=== PATIENT | female | born 1985 | race Two or more races ===

== ENCOUNTER 2021-06-27 16:04 | Emergency (ER) | payer OTHER ==
[~2021-06-27] VITALS: Ht 160 cm; Wt 54.9 kg
[2021-06-27 16:50] LABS: Hematocrit 39.4 % (36.0-46.0); Hemoglobin 13.6 g/dL (12.2-16.2); Mean Corpuscular Hemoglobin 32.5 pg (28.0-32.0); Mean Corpuscular Hgb Conc. 34.6 g/dL (32.0-36.0); Mean Corpuscular Volume 94.1 fL (80.0-100.0); Red Blood Cells 4.19 10^6/uL (4.0-5.20); Red Cell Distribution Width 12.6 % (11.8-14.3)
[2021-06-27] MEDS ORDERED: ONDANSETRON HCL 4 MG/2 ML VIAL IV ONE (17:00)
[2021-06-27] MEDS ORDERED: SODIUM CHLORIDE 0.9% 1,000 ML IV ONE (17:00)
[2021-06-27] MEDS ORDERED: methylPREDNISolone SOD SUCC 125 MG/2 ML VL IV ONE (17:00)
[2021-06-27 17:02] LABS: Basophils % (manual) 0 (0.0-2.0); Blast Cells 0; Eosinophils % (manual) 0 (0-7); Metamyelocytes % 0; Myelocytes % 0; Promyelocytes % 0; Reactive Lymphocytes 0
[2021-06-27 17:10] LABS: Albumin 3.4 g/dL (3.4-5.0); Calcium 8.6 mg/dL (8.5-10.1); Potassium 3.9 mmol/L (3.5-5.1)
[2021-06-27 17:13] LABS: Bilirubin, Total 0.3 mg/dL (0.2-1.0); Total Protein 7.3 g/dL (6.4-8.2)
[2021-06-27 20:28] VITALS: BP 124/88
[2021-06-27 20:31] LABS: Band Neutrophils % (manual) 1; Lymphocytes % (manual) 45 (10.0-50.0); Monocytes % (manual) 16 (0-12)
== END 2021-06-27 20:33 | disposition home or self-care (01) ==
LOC: ER 16:04
DX: U07.1 COVID-19 (principal); E86.0 Dehydration; R11.2 Nausea with vomiting, unspecified; Z88.0 Allergy status to penicillin
CPT/HCPCS: 36415; 71045; 80053; 83690; 85007; 85027